=== PATIENT | female | born 1950 | race Caucasian/White ===

== ENCOUNTER 2020-05-17 20:09 | Outpatient (CLI) | payer MEDICARE, BC | END 2020-05-17 20:10 | disposition home or self-care (01) | LOC: COV 20:09 | PROVIDERS: ATTEND Family Medicine | DX: R05 Cough (principal); Z20.828 Contact with and (suspected) exposure to other viral communicable diseases ==

== ENCOUNTER 2021-10-29 10:40 | Emergency (ER) | payer MEDICARE, BC ==
[2021-10-29 13:20] VITALS: BP 128/78
--- NOTE | 2021-10-29 13:25 | ED Physician Documentation ---
PD HPI URI - Stated complaint Stated Complaint: COUGH - Chief complaint Chief Complaint: Resp - History obtained from History obtained from: Patient, Family - History of Present Illness Timing - onset: How many days ago (3) Timing duration: Days Timing details: Gradual onset Pain level max: 0 Pain level now: 0 Associated symptoms: Dry cough. No: Fever, Chills, Hemoptysis, NVD, Unilateral edema Contributing factors: Sick contact Improves by: Rest Worsened by: Activity, Breathing - Additional information Additional information: 71-year-old female presents to the emergency department stating that she has been sick for the past 2 to 3 days. Her has been sick with the same for about a week, he is now improving. She has noticed itching and swelling to the eyelids around her eyes. Rhinorrhea, congestion, dry cough. No vomiting. No fevers. Has taken 2 home COVID test which were both negative. Review of Systems Constitutional: denies: Fever, Chills Ears: denies: Ear pain Nose: denies: Rhinorrhea / runny nose, Congestion Throat: denies: Sore throat Cardiac: denies: Chest pain / pressure Respiratory: denies: Dyspnea, Cough GI: denies: Nausea, Vomiting, Diarrhea Skin: denies: Rash Musculoskeletal: denies: Neck pain, Back pain Neurologic: denies: Focal weakness, Numbness, Headache PD PAST MEDICAL HISTORY - Past Medical History Past Medical History: No - Present Medications Home Medications: Ambulatory Orders Medication Instructions Recorded Confirmed Benzonatate [Tessalon] 200 mg PO TID PRN #30 cap 10/29/21 Cetirizine HCl/Pseudoephedrine 1 each PO BID PRN #30 ea 10/29/21 [Zyrtec-D Tablet] Ketotifen Fumarate [Eye Itch 1 drops EACHEYE Q8H PRN #1 bottle 10/29/21 Relief] - Living Situation Living Situation: reports: With family Living Arrangement: reports: At home - Social History Does the pt smoke?: No Does the pt have substance abuse?: No PD ED PE NORMAL - Vitals Vital signs reviewed: Yes - General General: Alert and oriented X 3, No acute distress - HEENT HEENT: PERRL, Ears normal, Moist mucous membranes, Pharynx benign, Other (Bilateral conjunctival injection. Mild erythema and swelling bilateral periorbital areas.) - Neck Neck: Supple, no meningeal sign - Cardiac Cardiac: RRR, Strong equal pulses - Respiratory Respiratory: No respiratory distress, Clear bilaterally - Abdomen Abdomen: Soft, Non tender, Non distended - Derm Derm: Warm and dry - Extremities Extremities: No edema, No calf tenderness / cord - Neuro Neuro: Alert and oriented X 3 - Psych Psych: Normal mood, Normal affect Results - Vitals Vitals: Vital Signs - 24 hr 10/29/21 10/29/21 10:59 13:19 Temperature 36.5 C Heart Rate 101 H 78 Respiratory 20 20 Rate Blood Pressure 125/66 128/78 O2 Saturation 99 100 Oxygen O2 Source Room air PD MEDICAL DECISION MAKING - ED course Complexity details: reviewed results, re-evaluated patient, considered differential, d/w patient, d/w family ED course: Patient with what appears to be a viral upper respiratory infection. Lungs are clear to auscultation bilaterally. She is well-appearing, nontoxic. Afebrile. No hypoxia. No respiratory distress. Appears to have a viral conjunctivitis as well. We will continue supportive care and have her follow-up with her doctor for further care. COVID testing was sent. Patient counseled regarding signs and symptoms for which I believe and urgent re-evaluation would be necessary. Patient with good understanding of and agreement to plan and is comfortable going home at this time This document was made in part using voice recognition software. While efforts are made to proofread this document, sound alike and grammatical errors may occur. Departure - Departure Disposition: 01 Home, Self Care Clinical Impression: Viral URI Condition: Good Instructions: ED Viral Syndrome Follow-Up: Janie Hendricks ARNP [Primary Care Provider] - Within 1 week Prescriptions: Ketotifen Fumarate [Eye Itch Relief] 1 drops EACHEYE Q8H PRN #1 bottle PRN Reason: eye itching Benzonatate [Tessalon] 200 mg PO TID PRN #30 cap PRN Reason: Cough Cetirizine HCl/Pseudoephedrine [Zyrtec-D Tablet] 1 each PO BID PRN #30 ea PRN Reason: nasal congestion Comments: Your prescriptions were sent to [facility] in [place]. Use the medications as prescribed. Drink plenty of fluids. Return if you worsen. This should improve over the next 3 to 5 days.
== END 2021-10-29 13:47 | disposition home or self-care (01) ==
LOC: ED 10:40
DX: J06.9 Acute upper respiratory infection, unspecified (principal); Z20.822 Contact with and (suspected) exposure to COVID-19
CPT/HCPCS: 99282; 99283; U0004

== ENCOUNTER 2022-11-23 07:00 | Outpatient (CLI) | payer MEDICARE, BC ==
[2022-11-23 20:38] LABS: BILIRUBIN,URINE NEGATIVE (NEGATIVE); GLUCOSE, URINE (UA) NEGATIVE (NEGATIVE); KETONES,URINE (UA) TRACE mg/dL (NEGATIVE); LEUKOCYTE ESTERASE, URINE SMALL (NEGATIVE); NITRITE,URINE NEGATIVE (NEGATIVE); OCCULT BLOOD,URINE MODERATE (NEGATIVE); PROTEIN,URINE NEGATIVE (NEGATIVE); UROBILINOGEN,URINE 0.2 (NORMAL) E.U./dL (NORMAL)
[2022-11-23 20:47] LABS: BACTERIA,URINE Rare /HPF (None Seen); CLARITY,URINE HAZY (CLEAR); SQUAMOUS EPITHELIAL CELL,UR RARE Squamous (<= Few); WBC,URINE >25 /HPF (0-5)
[2022-11-23 20:48] LABS: CRYSTALS,URINE >50 Calcium Oxalate /LPF
== END 2022-11-23 23:59 | disposition home or self-care (01) ==
LOC: LAB.S 07:00
PROVIDERS: ATTEND Emergency Medicine
DX: R30.0 Dysuria (principal)
CPT/HCPCS: 81001; 87077; 87086; 87181

== ENCOUNTER 2023-08-22 08:41 | Outpatient (CLI) | payer MEDICARE, BC ==
--- NOTE | 2023-08-22 14:37 | XRAY Report ---
PROCEDURE: Knee 3V RT INDICATIONS: NONDISPLACED FX WITH ROUTINE HEALING TECHNIQUE: 3 views of the knee(s) were acquired. COMPARISON: None. FINDINGS: Bones: Nondisplaced, age indeterminate, longitudinally oriented fracture of the patella. Anatomic a lignment. No suspicious bony lesions. Soft tissues: Small knee joint effusion. No suspicious soft tissue calcifications or masses. IMPRESSION: 1.Nondisplaced, age indeterminate, longitudinally oriented fracture of the patella. 2.Small knee joint effusion. Reviewed by: Brien Deluna MD on 08/22/2023 2:36 PM PDT Approved by: Brien Deluna MD on 08/22/2023 2:36 PM PDT Station ID: [id number]
== END 2023-08-22 08:42 | disposition home or self-care (01) ==
LOC: DI 08:41
PROVIDERS: ATTEND Registered Nurse
DX: S82.014D Nondisplaced osteochondral fracture of right patella, subsequent encounter for closed fracture with routine healing (principal); M25.461 Effusion, right knee

== ENCOUNTER 2023-09-02 07:00 | Outpatient (CLI) | payer MEDICARE, BC ==
[2023-09-02 20:25] LABS: BILIRUBIN,URINE NEGATIVE (NEGATIVE); GLUCOSE, URINE (UA) NEGATIVE (NEGATIVE); KETONES,URINE (UA) NEGATIVE (NEGATIVE); LEUKOCYTE ESTERASE, URINE MODERATE (NEGATIVE); NITRITE,URINE NEGATIVE (NEGATIVE); OCCULT BLOOD,URINE TRACE-LYSE (NEGATIVE); PH,URINE 6.5 PH (5.0-7.5); PROTEIN,URINE NEGATIVE (NEGATIVE); UROBILINOGEN,URINE 0.2 (NORMAL) E.U./dL (NORMAL)
[2023-09-02 20:42] LABS: BACTERIA,URINE Few /HPF (None Seen); CLARITY,URINE CLEAR (CLEAR); RBC,URINE 0-5 /HPF (0-5); SQUAMOUS EPITHELIAL CELL,UR RARE Squamous (<= Few)
== END 2023-09-02 23:59 | disposition home or self-care (01) ==
LOC: LAB.S 07:00
PROVIDERS: ATTEND Emergency Medicine
DX: R30.0 Dysuria (principal)
CPT/HCPCS: 81001; 87077; 87086; 87181

== ENCOUNTER 2023-11-16 19:06 | Emergency (ER) | payer MEDICARE, BC ==
[2023-11-16 19:55] LABS: CLARITY,URINE HAZY (CLEAR)
[2023-11-16 20:02] LABS: BACTERIA,URINE Moderate /HPF (None Seen); SQUAMOUS EPITHELIAL CELL,UR NONE SEEN (<= Few); WBC,URINE >25 /HPF (0-5)
[2023-11-16 20:05] LABS: ALBUMIN 4.4 g/dL (3.2-5.5); ALBUMIN/GLOBULIN RATIO 2.1 (1.0-2.2); BILIRUBIN,TOTAL 0.4 mg/dL (0.2-1.0); CALCIUM 9.9 mg/dL (8.5-10.3); CREATININE 0.9 mg/dL (0.6-1.3); POTASSIUM 3.6 mmol/L (3.5-4.5); TOTAL PROTEIN 6.5 g/dL (6.4-8.9)
--- NOTE | 2023-11-16 20:24 | ED Physician Documentation ---
PD HPI FEMALE - Stated complaint Stated Complaint: - Chief complaint Chief Complaint: General - History obtained from History obtained from: Patient - Additional information Additional information: Patient is a 73-year-old female presenting for evaluation of dysuria and frequency starting this evening. Patient reports having a history of UTIs. She had 1 pill left from a prior prescription of cephalexin so she did take that this evening along with a dose of Pyridium. No fevers. Denies flank pain. No abdominal pain. No reported hematuria. Review of Systems Constitutional: denies: Fever GI: denies: Abdominal Pain : reports: Dysuria, Frequency PD PAST MEDICAL HISTORY - Past Medical History Cardiovascular: None Respiratory: None Neuro: None GI: None [employer]: None : None HEENT: None Psych: None Musculoskeletal: None Derm: None - Past Surgical History Past Surgical History: No - Present Medications Home Medications: Ambulatory Orders Medication Instructions Recorded Confirmed Benzonatate [Tessalon] 200 mg PO TID PRN #30 cap 10/29/21 Cetirizine HCl/Pseudoephedrine 1 each PO BID PRN #30 ea 10/29/21 [Zyrtec-D Tablet] Ketotifen Fumarate [Eye Itch 1 drops EACHEYE Q8H PRN #1 bottle 10/29/21 Relief] Phenazopyridine HCl [Pyridium] 200 mg PO TID PRN #6 tablet 11/16/23 cephALEXin [Keflex] 500 mg PO BID #14 cap 11/16/23 - Allergies Allergies/Adverse Reactions: Allergies Allergy/AdvReac Type Severity Reaction Status Date / Time Sulfa (Sulfonamide Allergy Rash Verified 11/16/23 19:26 Antibiotics) - Social History Does the pt smoke?: No Smoking Status: Never smoker Does the pt drink ETOH?: No Does the pt have substance abuse?: No - Immunizations Immunizations are current?: Yes - POLST Patient has POLST: No PD ED PE NORMAL - General General: Alert and oriented X 3, No acute distress, Well developed/nourished - HEENT HEENT: Atraumatic - Neck Neck: Supple, no meningeal sign - Cardiac Cardiac: RRR - Respiratory Respiratory: No respiratory distress, Clear bilaterally - Abdomen Abdomen: Soft, Non tender, Non distended - Back Back: No CVA TTP - Derm Derm: Warm and dry - Neuro Neuro: Normal speech Results - Vitals Vitals: Vital Signs - 24 hr 11/16/23 11/16/23 19:26 20:37 Temperature 36.3 C L Heart Rate 85 80 Respiratory 18 16 Rate Blood Pressure 126/74 128/74 O2 Saturation 99 98 Oxygen O2 Source Room air - Labs Labs: Laboratory Tests 11/16/23 11/16/23 19:24 19:43 Sodium 141 Potassium 3.6 Chloride 102 Carbon Dioxide 32 Anion Gap 7.0 BUN 16 Creatinine 0.9 Estimated GFR (MDRD) 61 L Glucose 98 Calcium 9.9 Total Bilirubin 0.4 AST 22 ALT 23 Alkaline Phosphatase 71 Total Protein 6.5 Albumin 4.4 Globulin 2.1 Albumin/Globulin Ratio 2.1 Lipase 55 Urine Color ORANGE Urine Clarity HAZY Urine pH Ur Specific [place] Urine Protein Urine Glucose (UA) Urine Ketones Urine Occult Blood Urine Nitrite Urine Bilirubin Urine Urobilinogen Ur Leukocyte Esterase Urine RBC 11-25 H Urine WBC >25 H Ur Squamous Epith Cells NONE SEEN Urine Bacteria Moderate H Ur Microscopic Review INDICATED Urine Culture Comments INDICATED PD Medical Decision Making - ED course Complexity details: reviewed results, d/w patient ED course: Patient is 73-year-old female presenting for dysuria and frequency. Urinalysis is suggestive of an infection. Vital signs are stable. Abdominal exam is benign. Nothing on the history to suggest kidney stone. Patient has done well on cephalexin in the past so we will prescribe this. Urine culture is pending. Patient counseled on treatment plan as well as concerning symptoms to return for. Departure - Departure Disposition: 01 Home, Self Care Clinical Impression: UTI (urinary tract infection) Condition: Stable Instructions: ED UTI Cystitis Female Prescriptions: cephALEXin [Keflex] 500 mg PO BID #14 cap Phenazopyridine HCl [Pyridium] 200 mg PO TID PRN #6 tablet PRN Reason: dysuria Comments: Your testing shows that you have a urine infection. I am starting you on an antibiotic called cephalexin which she will take for the next week. I have also sent a prescription for Pyridium to help with any discomfort. The urine will be sent for culture and we will notify you if you need a change in your antibiotic. Please return to the ER if you develop any worsening symptoms such as fever, vomiting, pain. Your prescriptions were sent to [facility] in [place]. Forms: PCP List Discharge Date/Time: 11/16/23 20:39
[2023-11-16] MEDS: cephALEXin 250 MG CAPSULE PO STA (20:35)
[2023-11-16 20:38] VITALS: BP 128/74; O2SAT 98
--- NOTE | 2023-11-19 19:00 | ED Physician Documentation ---
ED Addendum - Addendum Addendum: 11/19/23 18:59 The patient's urine culture came back showing an ESBL producing E. coli resistant to cephalosporins and penicillins. Patient had been discharged home on Keflex for apparent UTI. The culture shows sensitivity to quinolones and I will prescribe Levaquin 500 mg daily for 7 days to the [facility] pharmacy in [place]. Nursing will notify the patient.
== END 2023-11-16 20:39 | disposition home or self-care (01) ==
LOC: ED 19:06
DX: N39.0 Urinary tract infection, site not specified (principal); B96.20 Unspecified Escherichia coli [E. coli] as the cause of diseases classified elsewhere
CPT/HCPCS: 36415; 80053; 81001; 83690; 87077; 87086; 87181; 99283; A9270; 81003